=== PATIENT | female | born 1990 | race Caucasian/White ===

== ENCOUNTER 2019-07-27 09:43 | Inpatient (IN) | payer MEDICAID, OTHER ==
[~2019-07-27] VITALS: Ht 172.7 cm; Wt 79.5 kg
[~2019-07-27 09:43] MED LIST: DICY10CA40 PO; POLY17PO6 PO; SULF1TAB31 PO
[2019-07-27] MEDS ORDERED: ONDANSETRON 4 MG INJ IV PRN ×2 (10:00→14:00)
[2019-07-27] MEDS ORDERED: VANCOMYCIN IV PER PHARMACY XX SCH (14:00)
[2019-07-27] MEDS ORDERED: DOCUSATE SODIUM 100 MG CAP PO PRN (14:00)
[2019-07-27] MEDS ORDERED: ZOLPIDEM 5 MG TAB PO PRN (14:00)
[2019-07-27] MEDS ORDERED: NACL 0.9% 3 ML SYG IV SCH (14:00)
[2019-07-27] MEDS ORDERED: VANCOMYCIN 1.5 GM/NS 250 ML 250 ML IVPB ONE (14:15)
[2019-07-27] MEDS: PIPER-TAZO 3.375 GM IV (PMX) 100 ML IVPB SCH ×2 (14:17→22:21)
[2019-07-27] MEDS: SOD CHLORIDE 0.9% 1,000 ML IV SCH ×2 (14:17→23:51)
[2019-07-27] MEDS: morphine 2 MG INJ IV PRN (14:37)
[2019-07-27 19:44] VITALS: Ht 172.7 cm; Wt 79.5 kg
[2019-07-27 20:47] VITALS: BP 117/68; PULSE 56; RESP 20
[2019-07-28] MEDS: VANCOMYCIN 750 MG (PMX) 250 ML IVPB SCH ×3 (01:04→18:31)
[2019-07-28 02:37] VITALS: BP 118/68; PULSE 54; RESP 16
[2019-07-28] MEDS: PIPER-TAZO 3.375 GM IV (PMX) 100 ML IVPB SCH ×3 (06:23→17:49)
[2019-07-28] MEDS: PANTOPRAZOLE 40 MG INJ IV SCH (06:23)
[2019-07-28 08:14] VITALS: BP 114/57; PULSE 58; RESP 16
[2019-07-28] MEDS: SOD CHLORIDE 0.9% 1,000 ML IV SCH ×2 (09:51→16:35)
[2019-07-28 14:19] VITALS: BP 132/61; PULSE 56; RESP 18
[2019-07-28 21:03] VITALS: BP 123/64; PULSE 60; RESP 18
[2019-07-29] MEDS: PIPER-TAZO 3.375 GM IV (PMX) 100 ML IVPB SCH ×4 (00:16→18:51)
[2019-07-29] MEDS: VANCOMYCIN 750 MG (PMX) 250 ML IVPB SCH ×3 (01:33→16:33)
[2019-07-29 02:30] VITALS: BP 118/63; PULSE 53; RESP 20
[2019-07-29] MEDS: SOD CHLORIDE 0.9% 1,000 ML IV SCH ×2 (05:51→11:44)
[2019-07-29] MEDS: PANTOPRAZOLE 40 MG INJ IV SCH (06:44)
[2019-07-29 08:00] VITALS: BP 118/62; PULSE 58; RESP 16
[2019-07-29 14:00] VITALS: BP 121/68; PULSE 67; RESP 16
[2019-07-29 20:39] VITALS: BP 117/59; PULSE 57; RESP 18
[2019-07-30] MEDS: PIPER-TAZO 3.375 GM IV (PMX) 100 ML IVPB SCH ×4 (00:15→17:34)
[2019-07-30] MEDS: VANCOMYCIN 750 MG (PMX) 250 ML IVPB SCH ×3 (01:12→18:27)
[2019-07-30] MEDS: SOD CHLORIDE 0.9% 1,000 ML IV SCH ×2 (01:12→16:14)
[2019-07-30 02:03] VITALS: BP 116/57; PULSE 55; RESP 19
[2019-07-30] MEDS: PANTOPRAZOLE 40 MG INJ IV SCH (05:47)
[2019-07-30 08:00] VITALS: BP 116/65; RESP 18
[2019-07-30] MEDS: morphine 2 MG INJ IV PRN (10:24)
[2019-07-30] MEDS ORDERED: BISACODYL (EC) 5 MG TAB PO ONE (10:30)
[2019-07-30 14:00] VITALS: BP 128/80; PULSE 57; RESP 17
[2019-07-30] MEDS ORDERED: PEG/ELECTROLYTES 4L BTL PO ONE (17:00)
[2019-07-30 20:00] VITALS: BP 143/77; PULSE 62; RESP 18
[2019-07-31] VITALS (10 sets, daily range): BP systolic 106–138; BP diastolic 55–84; PULSE 50–62; RESP 15–24
[2019-07-31] MEDS: PIPER-TAZO 3.375 GM IV (PMX) 100 ML IVPB SCH ×2 (00:22→05:44)
[2019-07-31] MEDS: VANCOMYCIN 750 MG (PMX) 250 ML IVPB SCH ×3 (01:31→17:48)
[2019-07-31] MEDS: PANTOPRAZOLE 40 MG INJ IV SCH (05:44)
[2019-07-31] MEDS: SOD CHLORIDE 0.9% 1,000 ML IV SCH ×2 (05:44→10:30)
[2019-07-31] MEDS ORDERED: PROPOFOL 40 ML ONE (12:28)
[2019-07-31] MEDS ORDERED: LIDOCAINE 2% (SDV) 5 ML INJ ONE (12:28)
[2019-07-31] MEDS ORDERED: ONDANSETRON 4 MG INJ IV PRN (12:30)
[2019-07-31] MEDS ORDERED: LABETALOL HCL 20MG INJ IV PRN (12:30)
[2019-07-31] MEDS ORDERED: FENTAnyl 50 MCG/ML VIAL IV PRN (12:30)
[2019-07-31] MEDS ORDERED: DIPHENHYDRAMINE 50 MG INJ IV PRN (12:30)
[2019-07-31] MEDS ORDERED: ACETAMINOPHEN 500 MG TAB PO PRN (12:30)
[2019-07-31] MEDS ORDERED: ALBUTEROL 0.083% (NEB) 2.5 MG/3 ML AMP HHN PRN (12:30)
[2019-08-01] MEDS: VANCOMYCIN 750 MG (PMX) 250 ML IVPB SCH ×3 (00:46→16:15)
[2019-08-01 02:00] VITALS: BP 105/62; PULSE 56; RESP 19
[2019-08-01] MEDS: PANTOPRAZOLE 40 MG INJ IV SCH (05:37)
[2019-08-01 08:00] VITALS: BP 109/62; PULSE 57; RESP 16
[2019-08-01] MEDS: DICYCLOMINE 10 MG CAP PO PRN ×2 (08:25→14:15)
[2019-08-01 14:00] VITALS: BP 143/79; PULSE 55; RESP 16
[2019-08-01 19:56] VITALS: BP 127/84; PULSE 58; RESP 20
== END 2019-08-01 22:42 | disposition home or self-care (01) | DRG 392 ==
LOC: E/R 09:43 → 5EC 09:50
PROVIDERS: ADMIT Internal Medicine Nephrology; ATTEND Internal Medicine Nephrology
PROC: 0DJD8ZZ Inspection of Lower Intestinal Tract, Via Natural or Artificial Opening Endoscopic (ICD-10-PCS; principal; 2019-07-31 12:30)
DX: K58.1 Irritable bowel syndrome with constipation (principal); N76.4 Abscess of vulva; K62.5 Hemorrhage of anus and rectum; F41.9 Anxiety disorder, unspecified; Z87.891 Personal history of nicotine dependence; K90.0 Celiac disease; K64.4 Residual hemorrhoidal skin tags; G89.29 Other chronic pain
CPT/HCPCS: 76856; 80048; 80053; 80202; 82565; 82784; 83735; 84100; 84520; 84703; 85025; 85610; 85651; 86140; C9113; J2270; J2405; J2543; J3370; J7030